=== PATIENT | female | born 1995 | race Hispanic/Latino ===

== ENCOUNTER 2017-07-01 02:40 | Emergency (ER) | payer SELFPAY ==
[2017-07-01] MEDS ORDERED: Lidocaine Viscous Sol 2% 15 ml UD Cup ONE (03:06)
[2017-07-01] MEDS ORDERED: Milk Of Magnesia 30 ML UDCUP ONE (03:06)
[2017-07-01 03:23] LABS: Hemoglobin 14.1 g/dL (12.0-16.0); Lymphocytes 59 % (28-48); MDiff Complete? YES; Mean Corpuscular HGB CONC 35.1 g/dL (32.0-36.0); Mean Corpuscular Hemoglobin 31.7 pg (25.0-35.0); Mean Corpuscular Volume 90.4 fl (77.0-87.0); Mean Platelet Volume 7.8 fL (7.4-10.4); Monocytes 4 % (0-4); Neutrophil 36 % (31-61); PLT Morphology Comment Appears Adequate; Platelet Count 191 thou/uL (130-400); RBC Distribution Width 11.6 % (11.5-14.5); Red Blood Cell (RBC) Count 4.45 mill/uL (4.00-5.20); White Blood Cell (WBC) Count 10.1 thou/uL (4.8-10.8)
[2017-07-01 03:27] LABS: ALT (SGPT) 32 U/L (8-55); AST (SGOT) 21 U/L (5-34); Albumin 4.4 g/dL (3.5-5.0); Alkaline Phosphatase 92 U/L (40-150); Anion Gap 14 mmol/L (10-20); BUN (Urea Nitrogen) 11 mg/dL (7.0-18.7); Bilirubin, Total 0.5 mg/dL (0.2-1.2); CK (CPK) 85 U/L (29-168); Calc. Creatinine Clearance 0 mL/min (70-130); Calcium 9.7 mg/dL (7.8-10.44); Carbon Dioxide 24 mmol/L (22-29); Chloride 103 mmol/L (98-107); Estimated GFR-MDRD Greater than 90; Globulin 3.6 g/dL (2.4-3.5); Glucose 99 mg/dL (70-105); Lipase 23 U/L (8-78); Potassium 3.8 mmol/L (3.5-5.1); Sodium 137 mmol/L (136-145)
[2017-07-01 03:30] LABS: Troponin I Less than 0.010 ng/mL (< 0.028)
[2017-07-01 05:27] LABS: Troponin I Less than 0.010 ng/mL (< 0.028)
== END 2017-07-01 05:51 | disposition home or self-care (01) ==
LOC: ERS 02:40
DX: R07.89 Other chest pain (principal)
CPT/HCPCS: 36415; 80053; 82553; 83690; 84484; 85025; 93005; 94760

== ENCOUNTER 2024-04-17 20:32 | Emergency (ER) | payer SELFPAY | END 2024-04-17 21:05 | disposition home or self-care (01) | LOC: ERS 20:32 | DX: L08.82 Omphalitis not of newborn (principal) | CPT/HCPCS: 99283 ==